=== PATIENT | female | born 1975 | race Caucasian/White ===

== ENCOUNTER 2016-12-27 10:14 | Emergency (ER) | payer OTHER ==
[~2016-12-27] VITALS: Ht 147.3 cm; Wt 59.0 kg
[~2016-12-27 10:14] MED LIST: ALBU8.5H3 INH; ANTIBIOTIC PO; BEN50 PO; CETI-240 PO; EPIN0.3P4 INJ; FAMO-18 PO; GUAI118L94 PO; IBUP-1542 PO; LORA5SOL PO; PRED50TA PO; SMV40T PO; TRAM50TA2 PO
[2016-12-27 10:15] VITALS: Ht 147.3 cm; Wt 59.0 kg
[2016-12-27] MEDS ORDERED: OSELTAMIVIR 75 MG CAP PO ONE (11:00)
[2016-12-27] MEDS ORDERED: predniSONE 20 MG TAB PO ONE (11:00)
--- NOTE | 2016-12-27 11:57 | RADRPT ---
PROCEDURE: Chest x-ray CLINICAL INDICATION: Fever TECHNIQUE: Chest single view COMPARISON: 12/09/2015 FINDINGS: The heart is normal in size. The pulmonary vessels are normal in caliber. The lungs are clear. Th e costophrenic angles are sharp. The visualized bony thorax is unremarkable. IMPRESSION: No acute cardiopulmonary disease. RPTAT: HH .Basilio Palacio MD, Date Time Electronically viewed and signed by .Basilio Palacio MD, on 12/27/2016 11:57 .W/
[2016-12-27] MEDS ORDERED: OSLT75C PO (12:29)
[2016-12-27] MEDS ORDERED: UDROBDM PO (12:29)
[2016-12-27] MEDS ORDERED: IBUP-1542 PO (12:29)
--- NOTE | 2016-12-27 12:31 | ERD ---
ER Documentation Chief Complaint Date/Time DATE: 12/27/16 TIME: 12:30 Chief Complaint fever , cough , body ache HPI This 41-year-old female complains of fever cough and body aches for 1 day. She is here at triage and states that she is allergic to Tylenol but took ibuprofen 600 mg. She denies any chest pain, vomiting, abdominal pain, diarrhea, additional, urinary complaints ROS All systems reviewed and are negative except as per history of present illness. Medications Home Meds Active Scripts Albuterol Sulfate* (Ventolin HFA*) 18 Gm Hfa.aer.ad, 2 PUFF INHALATION Q4H, #1 INHALER Prov:JOSE DANIEL GREEN MD 12/27/16 Prednisone* (Prednisone*) 20 Mg Tab, 40 MG PO DAILY for 3 Days, TAB Start December 28, 2016 Prov:JOSE DANIEL GREEN MD 12/27/16 Ibuprofen* (Motrin*) 600 Mg Tab, 600 MG PO Q6, #15 TAB Prov:JOSE DANIEL GREEN MD 12/27/16 Guaifenesin-Dextromethorphan* (Robitussin* DM) 100MG/10MG/5ML Syrup, 5 ML PO Q6H for 5 Days, ML Prov:JOSE DANIEL GREEN MD 12/27/16 Oseltamivir Phosphate* (Tamiflu*) 75 Mg Capsule, 75 MG PO BID for 5 Days, CAP Prov:JOSE DANIEL GREEN MD 12/27/16 Famotidine* (Pepcid*) 20 Mg Tablet, 20 MG PO BID for 30 Days, TAB Prov:AMANUEL CALZADA NP 02/25/16 Albuterol Sulfate* (Proair HFA*) 8.5 Gm Hfa.aer.ad, 2 PUFF INH Q4H Y for WHEEZING AND SOB, #1 INHALER Prov:AMANUEL CALZADA NP 02/25/16 Prednisone* (Prednisone*) 50 Mg Tablet, 50 MG PO DAILY, #5 TAB Prov:AMANUEL CALZADA NP 02/25/16 Diphenhydramine Hcl* (Benadryl*) 50 Mg Cap, 50 MG PO Q6H Y for ITCHING/RASH, # 30 CAP Prov:AMANUEL CALZADA NP 02/25/16 Epinephrine (Epipen 2-John) 0.3 Mg/0.3 Ml Pen.injctr, 1 EA INJ ONCE Y for ALLERGIC REACTION, #1 EA Prov:AMANUEL CALZADA NP 02/25/16 Ibuprofen* (Motrin*) 600 Mg Tab, 600 MG PO Q6H Y for PAIN AND OR ELEVATED TEMP, #30 TAB Prov:AMANUEL CALZADA IMAGING ANALYST 12/09/15 Cetirizine Hcl* (Cetirizine Hcl*) 10 Mg Tablet, 10 MG PO DAILY, #30 TAB Prov:AMANUEL CALZADA IMAGING ANALYST 12/09/15 Guaifenesin-Codeine Phosphate* (Guaifenesin* with Codeine Liq) 120 Ml Liquid, 5 ML PO Q4H for COUGH, #60 ML Prov:AMANUEL CALZADA IMAGING ANALYST 12/09/15 Albuterol Sulfate* (Proair HFA*) 8.5 Gm Hfa.aer.ad, 2 PUFF INH Q4H Y for WHEEZING AND SOB, #1 INHALER Prov:AMANUEL CALZADA IMAGING ANALYST 12/09/15 Tramadol HCl (Tramadol HCl) 50 Mg Tablet, 50 MG PO Q4 Y for PAIN, #10 TAB Prov:KARISHMA ESPANA PA-C 10/08/15 Reported Medications Loratadine* (Claritin*) 1 Mg/Ml Syrup, 5 MG PO DAILY, #120 ML 12/22/15 Albuterol Sulfate* (Proair HFA*) 8.5 Gm Hfa.aer.ad, 2 PUFF INH Q4H Y for WHEEZING AND SOB, INH 02/18/15 [Antibiotic] No Conflict Check, 100 MG PO BID 12/10/14 Simvastatin (Simvastatin) 40 Mg Tablet, 40 MG PO DAILY 12/22/12 Allergies Allergies: Coded Allergies: acetaminophen (Verified Allergy, Unknown, 12/03/14) PMhx/Soc History of Surgery: Yes (TONSILLECTOMY) Anesthesia Reaction: No Hx Neurological Disorder: No Hx Respiratory Disorders: Yes (asthma) Hx Cardiac Disorders: Yes (HIGH CHOLESTEROL) Hx Psychiatric Problems: No Hx Miscellaneous Medical Probl: No (ASTHMA ) Hx Alcohol Use: No Hx Substance Use: No Hx Tobacco Use: No Physical Exam Vitals Vital Signs Date Time Temp Pulse Resp B/P Pulse Ox O2 Delivery O2 Flow Rate FiO2 12/27/16 12:43 99.5 12/27/16 10:15 102.4 110 18 170/76 97 Physical Exam Const: [] Alert, not ill-appearing. Head: Atraumatic Eyes: Normal Conjunctiva ENT: Normal External Ears, Nose and Mouth. Neck: Full range of motion..~ No meningismus. Resp: Clear to auscultation bilaterally. Coarse cough without rales or wheezing. Cardio: Regular rate and rhythm, no murmurs Abd: Soft, non tender, non distended. Normal bowel sounds Skin: No petechiae or rashes Back: No midline or flank tenderness Ext: No cyanosis, or edema Neur: Awake and alert Psych: Normal Mood and Affect Results 24 hrs Current Medications Medications (Trade) Dose Ordered Sig/Gloria Route PRN Reason Start Time Stop Time Status Last Admin Dose Admin Prednisone (Prednisone) 40 mg ONCE ONCE PO 12/27/16 11:00 12/27/16 11:01 DC 12/27/16 11:12 Oseltamivir Phosphate (Tamiflu) 75 mg ONCE ONCE PO 12/27/16 11:00 12/27/16 11:01 DC 12/27/16 11:12 Procedures/MDM Patient signs and symptoms of acute febrile illness in the right, suspicious for influenza. She was given Tamiflu 75 mg by mouth and prednisone 40 mg of mouth for history of asthma. Patient was treated with Tamiflu, short course prednisone and fever control instructions for fluids and rest and follow-up with primary doctor this week. Is no evidence of hypoxemia or respiratory distress. The patient was stable with no new complaints during the ER course. Clinically, there is no current evidence to suggest meningitis, sepsis, acute abdomen, pneumonia, acute coronary syndrome, pulmonary embolism, or any other emergent condition appearing to require further evaluation or hospitalization. The patient should certainly return for any new or worsening symptoms per the aftercare instructions. They should otherwise follow-up with her primary care doctor for reevaluation this week. Departure Diagnosis: Primary Impression: URI (upper respiratory infection) URI type: unspecified URI Qualified Code: J06.9 - Upper respiratory tract infection, unspecified type Additional Impression: Fever Fever type: unspecified Qualified Code: R50.9 - Fever, unspecified fever cause Condition: Stable Patient Instructions: Fever Control (Adult), Influenza (Adult), Uri, Viral, No Abx (Adult) Additional Instructions: Likely influenza and we will treat for this. Recheck with primary doctor or for new or worsening symptoms. JOSE DANIEL GREEN MD Dec 27, 2016 12:31
[2016-12-27] MEDS ORDERED: PRED20TA PO (12:33)
[2016-12-27 12:43] VITALS: TEMP 99.5
[2016-12-27] MEDS ORDERED: ALBU18HF INHALATION (12:46)
== END 2016-12-27 12:54 | disposition home or self-care (01) ==
LOC: FTE 10:14
DX: J06.9 Acute upper respiratory infection, unspecified (principal); R50.9 Fever, unspecified; J45.909 Unspecified asthma, uncomplicated
CPT/HCPCS: 71010; J7512; Z7502; Z7610

== ENCOUNTER 2019-01-11 19:10 | Emergency (ER) | payer OTHER ==
[~2019-01-11] VITALS: Ht 147.3 cm; Wt 58.3 kg
[~2019-01-11 19:10] MED LIST changes: +ALBU18HF INHALATION; -ALBU8.5H3 INH; +ALBU8.5H8 INH; -CETI-240 PO; +CETI10TA19 PO; -FAMO-18 PO; +FAMO-96 PO; +GUAI5SYR2 PO; +OSEL75CA23 PO; +PRED20TA PO; +SIMV40TA3 PO; -SMV40T PO
[2019-01-11 19:21] VITALS: Ht 147.3 cm; Wt 58.3 kg
[2019-01-11] MEDS ORDERED: ALBUTEROL 0.5% (NEB) 2.5 MG/0.5 ML AMP INH STA (19:39)
[2019-01-11] MEDS ORDERED: predniSONE 20 MG TAB PO STA (19:39)
[2019-01-11] MEDS ORDERED: IPRATROPIUM (NEB) 0.5 MG/2.5 ML AMP INH STA (19:39)
--- NOTE | 2019-01-11 19:52 | ERD ---
ER Documentation Chief Complaint Chief Complaint cough w/ SOB and CP x2 days, hx of asthma HPI 43-year-old female history of asthma who presents with 2 days of URI type symptoms including nasal congestion and dry nonproductive cough. Her inhaler was not successful in helping her shortness of breath at home. The patient denies any pleuritic pain, no fevers, no productive cough. Symptoms similar to asthma exacerbations in the past. ROS All systems reviewed and are negative except as per history of present illness. Medications Home Meds Active Scripts Prednisone* (Prednisone*) 20 Mg Tab, 40 MG PO DAILY for 4 Days, TAB Prov:YEE FERNÁNDEZ MD 01/11/19 Albuterol Sulfate* (Ventolin HFA*) 18 Gm Hfa.aer.ad, 2 PUFF INHALATION Q4H, #1 INHALER Prov:YEE FERNÁNDEZ MD 01/11/19 Reported Medications Loratadine* (Claritin*) 1 Mg/Ml Syrup, 5 MG PO DAILY, #120 ML 12/22/15 Discontinued Reported Medications Albuterol Sulfate* (Proair HFA*) 8.5 Gm Hfa.aer.ad, 2 PUFF INH Q4H PRN for WHEEZING AND SOB, INH 02/18/15 [Antibiotic] No Conflict Check, 100 MG PO BID 12/10/14 Simvastatin (Simvastatin) 40 Mg Tablet, 40 MG PO DAILY 12/22/12 Discontinued Scripts Albuterol Sulfate* (Ventolin HFA*) 18 Gm Hfa.aer.ad, 2 PUFF INHALATION Q4H, #1 INHALER Prov:JOSE DANIEL GREEN MD 12/27/16 Prednisone* (Prednisone*) 20 Mg Tab, 40 MG PO DAILY for 3 Days, TAB Start December 28, 2016 Prov:JOSE DANIEL GREEN MD 12/27/16 Ibuprofen* (Motrin*) 600 Mg Tab, 600 MG PO Q6, #15 TAB Prov:JOSE DANIEL GREEN MD 12/27/16 Guaifenesin-Dextromethorphan* (Robitussin* DM) 100MG/10MG/5ML Syrup, 5 ML PO Q6H for 5 Days, ML Prov:JOSE DANIEL GREEN MD 12/27/16 Oseltamivir Phosphate* (Tamiflu*) 75 Mg Capsule, 75 MG PO BID for 5 Days, CAP Prov:JOSE DANIEL GREEN MD 12/27/16 Famotidine* (Pepcid*) 20 Mg Tablet, 20 MG PO BID for 30 Days, TAB Prov:AMANUEL CALZADA NP 02/25/16 Albuterol Sulfate* (Proair HFA*) 8.5 Gm Hfa.aer.ad, 2 PUFF INH Q4H PRN for WHEEZING AND SOB, #1 INHALER Prov:AMANUEL CALZADA CLIENT SERVICE REPRESENTATIVE 02/25/16 Prednisone* (Prednisone*) 50 Mg Tablet, 50 MG PO DAILY, #5 TAB Prov:AMANUEL CALZADA NP 02/25/16 Diphenhydramine Hcl* (Benadryl*) 50 Mg Cap, 50 MG PO Q6H PRN for ITCHING/RASH, #30 CAP Prov:AMANUEL CALZADA NP 02/25/16 Epinephrine (Epipen 2-John) 0.3 Mg/0.3 Ml Pen.injctr, 1 EA INJ ONCE PRN for ALLERGIC REACTION, #1 EA Prov:AMANUEL CALZADA NP 02/25/16 Ibuprofen* (Motrin*) 600 Mg Tab, 600 MG PO Q6H PRN for PAIN AND OR ELEVATED TEMP, #30 TAB Prov:AMANUEL CALZADA NP 12/09/15 Cetirizine Hcl* (Cetirizine Hcl*) 10 Mg Tablet, 10 MG PO DAILY, #30 TAB Prov:AMANUEL CALZADA NP 12/09/15 Guaifenesin-Codeine Phosphate* (Guaifenesin* with Codeine Liq) 120 Ml Liquid, 5 ML PO Q4H for COUGH, #60 ML Prov:AMANUEL CALZADA NP 12/09/15 Albuterol Sulfate* (Proair HFA*) 8.5 Gm Hfa.aer.ad, 2 PUFF INH Q4H PRN for WHEEZING AND SOB, #1 INHALER Prov:AMANUEL CALZADA NP 12/09/15 Tramadol HCl (Tramadol HCl) 50 Mg Tablet, 50 MG PO Q4 PRN for PAIN, #10 TAB Prov:KARISHMA ESPANA PA-C 10/08/15 Allergies Allergies: Coded Allergies: acetaminophen (Unverified Allergy, Unknown, 01/11/19) PMhx/Soc History of Surgery: Yes (TONSILLECTOMY) Anesthesia Reaction: No Hx Neurological Disorder: No Hx Respiratory Disorders: Yes (asthma) Hx Cardiac Disorders: Yes (HIGH CHOLESTEROL) Hx Psychiatric Problems: No Hx Miscellaneous Medical Probl: No (ASTHMA ) Hx Alcohol Use: No Hx Substance Use: No Hx Tobacco Use: No FmHx Family History: No diabetes Physical Exam Vitals Vital Signs Date Temp Pulse Resp B/P (MAP) Pulse Ox O2 O2 Flow FiO2 Time Delivery Rate 01/11/19 98.0 88 16 111/59 98 Room Air 21:21 (76) 01/11/19 69 22 99 21 19:54 01/11/19 97.8 78 17 147/71 94 19:21 (96) Physical Exam General: Well developed, well nourished, no acute distress Head: Normocephalic, atraumatic. Eyes: Pupils equally reactive, EOM intact ENT: Moist mucous membranes Neck: Supple, no lymphadenopathy Respiratory: Scant wheezing, good aeration, no distress, talking in full sente nces Cardiovascular: RRR, no murmurs, rubs, or gallops Abdominal: Soft, non-tender, non-distended, no peritoneal signs : Deferred MSK: No edema, no unilateral swelling, 5/5 strength Neurologic: Alert and oriented, moving all extremities, normal speech, no focal weakness, no cerebellar signs Skin: No rash Psych: Normal mood Results 24 hrs Current Medications Medications Dose Sig/Gloria Start Time Status Last (Trade) Ordered Route PRN Stop Time Admin Dose Reason Admin Albuterol 10 mg ONCE STAT 01/11/19 DC 01/11/19 (Proventil INH 19:39 19:53 0.5% (Neb)) 01/11/19 19:41 Ipratropium 1 mg ONCE STAT 01/11/19 DC 01/11/19 [place] INH 19:39 19:53 (Atrovent 01/11/19 19:41 0.02% (Neb)) Prednisone 60 mg ONCE STAT 01/11/19 DC 01/11/19 (Prednisone) PO 19:39 19:46 01/11/19 19:41 Procedures/MDM MEDICAL DECISION MAKING: Signs and symptoms consistent with viral URI with concomitant asthma exacerbation. No evidence of pneumonia. Patient is otherwise well-appearing without signs or symptoms of pulmonary process that would warrant chest x-ray imaging. Reassurance provided. ER COURSE: * Patient was given breathing treatment and steroid. Dramatic improvement of symptoms. The patient can be safely discharged home. No oxygen requirement, no indication for repeat dosing of nebulized treatment. CONSULTATION: None DISPOSITION PLAN: The patient does not have an identifiable emergent medical condition that warrants inpatient hospitalization at this time. The patient is deemed safe for discharge with outpatient follow-up. We discussed follow up with the patient's primary care doctor within 24 to 48 hours as needed. We also discussed return to the emergency room for worsening symptoms or worsening condition. Outpatient referral: None required Discharge Medications: Prednisone, Ventolin Departure Diagnosis: Primary Impression: Acute asthma exacerbation Asthma severity: mild Asthma persistence: unspecified Qualified Codes: J45.901 - Unspecified asthma with (acute) exacerbation Additional Impression: Viral upper respiratory tract infection Condition: Stable YEE FERNÁNDEZ MD Jan 11, 2019 19:52
[2019-01-11] MEDS ORDERED: PRED20TA PO (20:48)
[2019-01-11] MEDS ORDERED: ALBU18HF INHALATION (20:48)
[2019-01-11 21:21] VITALS: BP 111/59; PULSE 88; RESP 16
== END 2019-01-11 21:24 | disposition home or self-care (01) ==
LOC: E/R 19:10
DX: J45.901 Unspecified asthma with (acute) exacerbation (principal); J06.9 Acute upper respiratory infection, unspecified; R06.02 Shortness of breath; R40.2142 Coma scale, eyes open, spontaneous, at arrival to emergency department; R40.2252 Coma scale, best verbal response, oriented, at arrival to emergency department; R40.2362 Coma scale, best motor response, obeys commands, at arrival to emergency department
CPT/HCPCS: 93005; 94644; J7512; Z7502; Z7610